=== PATIENT | female | born 2000 | race American Indian/Alaskan Native ===

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

== ENCOUNTER 2018-04-26 16:52 | Emergency (ER) | payer MEDICAID | END 2018-04-26 19:00 | disposition left against medical advice (07) | LOC: ED 16:52 | DX: Z02.89 Encounter for other administrative examinations (principal); R51 Headache ==